=== PATIENT | male | born 1955 | race Caucasian/White ===

== ENCOUNTER 2016-10-23 12:43 | Emergency (ER) | payer BC ==
[2016-10-23 12:58] VITALS: BP 147/69
--- NOTE | 2016-10-23 13:23 | RAD ---
INDICATION: Pain and decreased range of motion LEFT elbow since this morning without proceeding injury. COMPARISON: No relevant prior exams available on the [facility] for comparison. TECHNIQUE: AP, lateral, and oblique views LEFT elbow. REPORT: Significant displacement of the anterior fat pad consistent with joint effusion. Negative for fracture or malalignment. Preserved joint spaces. Small enthesophyte at the medial upper condyle corresponding with the origin of the common flexor tendon. Unremarkable soft tissue contours. IMPRESSION: 1. Joint effusion of uncertain etiology. No fracture evident. 2. 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
--- NOTE | 2016-10-30 14:38 | UC ---
Elbow Pain - HPI Summary HPI Summary: 61 yo male with left elbow pain x 1 day denies trauma hurts to move/bend/straighten or lift also co left middle trigger finger x wks - History of Current Complaint Chief Complaint: UCUpperExtremity Stated Complaint: left elbow complaint Time Seen by Provider: 10/23/16 12:57 Onset/Duration: Hours Severity Initially: Moderate Severity Currently: Moderate Pain Intensity: 3 Pain Scale Used: 0-10 Numeric Character: Dull, Aching Aggravating Factor(s): Movement, Pulling, Twisting Alleviating Factor(s): Rest Associated Signs And Symptoms: Positive: Swelling - Allergies/Home Medications Allergies/Adverse Reactions: Allergies Allergy/AdvReac Type Severity Reaction Status Date / Time No Known Allergies Allergy Verified 10/23/16 12:51 PMH/Surg Hx/FS Hx/Imm Hx Previously Healthy: Yes Endocrine History: Dyslipidemia Cardiovascular History: Cardiac Disease, Hypertension, Bleeding Disorders - Surgical History Surgical History: Yes Surgery Procedure, Year, and Place: Cardiac cath with stenting x 2007 - Family History Known Family History: Positive: Cardiac Disease, Hypertension, Diabetes - Social History Alcohol Use: Rare Substance Use Type: None Smoking Status (MU): Former Smoker When Did the Patient Quit Smoking/Using Tobacco: 2007 Review of Systems Constitutional: Negative Skin: Negative Eyes: Negative ENT: Negative Respiratory: Negative Cardiovascular: Negative Gastrointestinal: Negative Genitourinary: Negative Motor: Negative Neurovascular: Negative Musculoskeletal: Arthralgia Neurological: Negative Psychological: Negative All Other Systems Reviewed And Are Negative: Yes Physical Exam Triage Information Reviewed: Yes Appearance: Well-Appearing, No Pain Distress, Well-Nourished Vital Signs: Initial Vital Signs Temp 96.4 F 10/23/16 12:53 Pulse 75 10/23/16 12:53 Resp 18 10/23/16 12:53 BP 147/69 10/23/16 12:53 Pulse Ox 97 10/23/16 12:53 Eyes: Positive: Conjunctiva Clear ENT: Positive: Hearing grossly normal. Negative: Nasal congestion, Nasal drainage, Trismus, Muffled/hoarse voice Respiratory: Positive: Lungs clear, Normal breath sounds, No respiratory distress Cardiovascular: Positive: RRR, No Murmur Musculoskeletal: Positive: ROM Limited @ - l elbow, Edema @ Neurological: Positive: Alert Psychological Exam: Normal Skin Exam: Normal Elbow Pain Course/Dx - Course Course Of Treatment: offerred to send him directly to see orthopedist. he states he will call for appt - Differential Dx/Diagnosis Provider Diagnoses: left elbow effusion of uncertain cause. trigger finger Discharge - Discharge Plan Condition: Stable Disposition: HOME Patient Education Materials: Trigger Finger (ED), Swollen Joint (ED) Forms: *Work Release Referrals: Colton Burnett MD [Medical Doctor] - As Soon As Possible Additional Instructions: your elbow joint has fluid in it with the lack of trauma I am unsure how to explain it see an orthopedist in the next day or two to ER for fever/red swollen joint or worsening symptoms sling aleve 1-2 twice paula as needed
== END 2016-10-23 13:52 | disposition home or self-care (01) ==
LOC: UCCORT 12:43
DX: M25.422 Effusion, left elbow (principal); M65.332 Trigger finger, left middle finger; E78.5 Hyperlipidemia, unspecified; I10 Essential (primary) hypertension; Z95.5 Presence of coronary angioplasty implant and graft; Z87.891 Personal history of nicotine dependence
CPT/HCPCS: 99212; G0463

== ENCOUNTER 2017-05-03 09:28 | Day surgery (SDC) | payer BC ==
[~2017-05-03 09:28] MED LIST: Buffered Lidocaine 0.9% SYRIN* 5 ML/SYR SYRINGE INTRADERM ONE; Dexamethasone IV* 4 MG/ML 1 ML (4 MG) IV SLOW PU ONE; Famotidine IV* 10 MG/ML 2 ML (20 mg) IV ONE
[2017-05-03] MEDS ORDERED: Dexamethasone IV* 4 MG/ML 1 ML (4 MG) ONE (09:39)
[2017-05-03] MEDS ORDERED: Famotidine IV* 10 MG/ML 2 ML (20 mg) ONE (09:39)
[2017-05-03] MEDS ORDERED: Bupivacaine 0.25% SDV* 30 ML ONE (12:02)
[2017-05-03] MEDS ORDERED: fentaNYL* 50 MCG/ML 2 ML VIAL (100 MCG VIAL) ONE (12:05)
[2017-05-03] MEDS ORDERED: Midazolam* 1 MG/ML 5 ML VIAL (5 MG) ONE (12:06)
[2017-05-03] MEDS ORDERED: Metoprolol Tartrate IV* 1 MG/ML 5 ML VIAL ONE (12:21)
[2017-05-03] MEDS ORDERED: Midazolam* 1 MG/ML 2 ML VIAL (2 MG) ONE (12:27)
[2017-05-03] MEDS ORDERED: oxyCODONE/Acetamin 5/325 MG* TAB PO PRN (12:34)
[2017-05-03] MEDS ORDERED: fentaNYL* 50 MCG/ML 2 ML VIAL (100 MCG VIAL) IV PRN (12:34)
[2017-05-03] MEDS ORDERED: HYDROcodone/ACETAMIN 5-325 MG* 1 TAB PO PRN (12:34)
[2017-05-03 13:04] VITALS: BP 153/81
--- NOTE | 2017-05-04 06:51 | OP ---
OPERATIVE REPORT: DATE OF OPERATION: 05/03/17 DATE OF : 59 SURGEON: Morales Cm MD BUFFING AND SUEDING MACHINE OPERATOR: BRITNEY Escamilla ANESTHESIOLOGIST: Dr. Muñiz ANESTHESIA: Local MAC. PRE-OP DIAGNOSIS: Left middle trigger finger. POST-OP DIAGNOSIS: Left middle trigger finger. OPERATIVE PROCEDURE: Left middle finger trigger finger release. ESTIMATED BLOOD LOSS: 1 mL. COMPLICATIONS: None. INDICATIONS: Raul's trigger finger has recurred. He has had injections. We talked about his opt ions and he wanted to proceed with a release. We had talked about risks and benefits. FINDINGS: As expected. DESCRIPTION OF PROCEDURE: Raul was seen in the preoperative holding area. The correct side, site , and procedure were identified. We came back to the operating room. The arm was prepped and draped in the usual fashion. A time-out was performed. I made a 1-cm longitudinal incision over the A1 luiza of the middle finger. Dissection was carried d own and the tendon sheath was exposed and digital nerves were retracted to either side with Ragnell r etractors. When the sheath was easily seen, I took the 15-blade and longitudinally incised the A1 pu lley. A release was continued distally and proximally with the tenotomy scissors. We had him flex t he fingers down as he was mostly awake at this point, he could not induce any triggering. We irrigat ed out the wound. Skin was closed with 4-0 Monocryl suture. Wound was dressed with Xeroform, 4x4s, s terile Webril, and an Homar wrap. He was awoken up and taken to recovery room in stable condition. [id number]/[facility] #: [id number]
== END 2017-05-03 13:20 | disposition home or self-care (01) ==
LOC: OR 09:28
PROVIDERS: ATTEND Orthopaedic Surgery Hand Surgery
DX: M65.332 Trigger finger, left middle finger (principal); Z79.82 Long term (current) use of aspirin; Z87.891 Personal history of nicotine dependence
CPT/HCPCS: J1100; J2250; J3010; J3490

== ENCOUNTER 2019-06-26 10:12 | Emergency (ER) | payer BC, OTHER ==
[2019-06-26 11:02] VITALS: BP 139/76
--- NOTE | 2019-06-26 11:17 | UC ---
Back Pain HPI - HPI Summary HPI Summary: 64-year-old male who was at work on Sunday when he twisted "just right" moving a large box of toothbrushes and felt pain in his left lower back. He denies any saddle anesthesia, no numbness in extremities. He continued the day, took Sunday off, returned yesterday and worked part of the day and then took the rest of the day off. He denies any problems urinating or with his bowel movements. - History of Current Complaint Chief Complaint: UCBackPain Stated Complaint: WC-BACK INJURY Time Seen by Provider: 06/26/19 11:17 Hx Obtained From: Patient Onset/Duration: Sudden Onset Timing: Intermittent Severity Initially: Moderate Severity Currently: Mild Pain Intensity: 2 Back Pain: Is Discrete @ - Left lower back/buttock Character: Sharp - Sharp only with movement or lifting. Aggravating Factor(s): Movement, Lifting, Bending Alleviating Factor(s): Rest Associated Signs And Symptoms: Positive: Negative. Negative: Weakness, Numbness , Tingling, Abdominal Pain, Flank Pain, Bladder Incontinence, Bowel Incontinence , Pain with Weight Bearing - Allergies/Home Medications Allergies/Adverse Reactions: Allergies Allergy/AdvReac Type Severity Reaction Status Date / Time No Known Allergies Allergy Verified 06/26/19 11:02 Home Medications: Home Medications Allopurinol TAB* [Zyloprim 300 MG TAB*] 100 mg PO DAILY 06/26/19 [History Confirmed 06/26/19] PMH/Surg Hx/FS Hx/Imm Hx Previously Healthy: Yes Endocrine History: Diabetes Cardiovascular History: Hypertension - Surgical History Surgical History: Yes Surgery Procedure, Year, and Place: Cardiac cath with stenting x 2007 - Family History Known Family History: Positive: Cardiac Disease, Hypertension, Diabetes - Social History Occupation: Employed Full-time Lives: With Family Alcohol Use: None Substance Use Type: None Smoking Status (MU): Former Smoker Amount Used/How Often: pack a day for 30 yrs When Did the Patient Quit Smoking/Using Tobacco: 2007 Review of Systems All Other Systems Reviewed And Are Negative: Yes Musculoskeletal: Positive: Other: - Mild left lower back pain only with movement or bending or lifting. Neurological/Mental Status: Negative: Weakness, Paresthesia, Numbness Is Patient Immunocompromised?: No Physical Exam Triage Information Reviewed: Yes Appearance: Well-Appearing, No Pain Distress, Well-Nourished Vital Signs: Initial Vital Signs Temp 98.3 F 06/26/19 10:57 Pulse 85 06/26/19 10:57 Resp 18 06/26/19 10:57 BP 139/76 06/26/19 10:57 Pulse Ox 97 06/26/19 10:57 Vital Signs Reviewed: Yes Respiratory: Positive: Lungs clear, Normal breath sounds, No respiratory distress, No accessory muscle use Cardiovascular: Positive: RRR, No Murmur, Pulses Normal, Brisk Capillary Refill Musculoskeletal Exam: Normal Musculoskeletal: Positive: Other: - Good peripheral pulses, neuro sensation capillary refill. Full range of motion. Negative straight leg raise. Neurological Exam: Normal Psychological Exam: Normal Skin Exam: Normal Back Pain Course/Dx - Course Course Of Treatment: The patient is comfortable here. I'm giving him off work until Sunday. He does have a doctor's appointment on Sunday for other reasons and he can be rechecked then. He was advised no drinking alcohol driving or operating machinery while taking the muscle relaxant. - Differential Dx/Diagnosis Provider Diagnosis: Low back strain Discharge ED - Sign-Out/Discharge Documenting (check all that apply): Patient Departure All imaging exams completed and their final reports reviewed: No Studies - Discharge Plan Condition: Good Disposition: HOME Prescriptions: Cyclobenzaprine TAB* [Flexeril 10 MG TAB*] 10 mg PO TID PRN #15 tab PRN Reason: Pain - Mild Patient Education Materials: Sciatica (ED) Forms: *Work Release Referrals: Brian Dailey MD [Primary Care Provider] - Additional Instructions: May apply heat or ice to the sore area, avoid movements that cause pain follow- up with your primary care provider on Sunday or Sunday if no improvement. - Billing Disposition and Condition Condition: GOOD Disposition: Home
== END 2019-06-26 11:31 | disposition home or self-care (01) ==
LOC: UCCORT 10:12
DX: S39.012A Strain of muscle, fascia and tendon of lower back, initial encounter (principal); E11.9 Type 2 diabetes mellitus without complications; I10 Essential (primary) hypertension; Z87.891 Personal history of nicotine dependence; X50.1XXA Overexertion from prolonged static or awkward postures, initial encounter; Y92.9 Unspecified place or not applicable; Y99.0 Civilian activity done for income or pay
CPT/HCPCS: 99212; G0463